=== PATIENT | male | born 1965 | race Caucasian/White ===

== ENCOUNTER 2017-03-17 06:50 | Day surgery (SDC) | payer BC ==
[2017-03-16 08:28] VITALS: BMI 23.3
[~2017-03-17 06:50] MED LIST: LACTATED RINGERS 1,000 ML IV SCH
[2017-03-17 07:10] VITALS: RESP 16; TEMP 97.4
[2017-03-17] MEDS ORDERED: PROPOFOL 10 MG/ML 20 ML VIAL IV ONE (07:44)
[2017-03-17] MEDS ORDERED: LIDOCAINE 1% INJ 10MG/ML (20 ML MDV) ONE (07:44)
--- NOTE | 2017-03-17 07:57 | P.GSHP ---
History of Present Illness H&P Date: 03/17/17 Chief Complaint: Screening colonoscopy This a 52-year-old male who presents today for screening colonoscopy. Patient denies any significant junk placed. His father has history of colon cancer. Past Medical History Past Medical History: No Reported History History of Any Multi-Drug Resistant Organisms: None Reported Past Surgical History: Orthopedic Surgery Additional Past Surgical History / Comment(s): left eye cornea transplant, foot sx Past Anesthesia/Blood Transfusion Reactions: No Reported Reaction Smoking Status: Never smoker - Past Family History Mother Family Medical History: No Reported History Medications and Allergies Home Medications Medication Instructions Recorded Confirmed Type No Known Home Medications [No 03/16/17 03/17/17 History Known Home Medications] Allergies Allergy/AdvReac Type Severity Reaction Status Date / Time No Known Allergies Allergy Verified 03/16/17 08:22 Surgical - Exam Vital Signs Temp Pulse Resp BP Pulse Ox 97.4 F L 61 16 121/77 99 03/17/17 07:08 03/17/17 07:08 03/17/17 07:08 03/17/17 07:08 03/17/17 07:08 - General well developed, no distress - Eyes PERRL - ENT normal pinna - Neck no masses - Respiratory normal expansion - Cardiovascular Rhythm: regular - Abdomen Abdomen: soft, non tender Assessment and Plan Plan: Family history of colon cancer. We'll perform screening colonoscopy.
--- NOTE | 2017-03-17 08:06 | P.OP ---
Date of Procedure: 03/17/17 Preoperative Diagnosis: Screening colonoscopy Postoperative Diagnosis: Normal colon Procedure(s) Performed: Colonoscopy Implants: Anesthesia: MAC Surgeon: Wicho Cordero Pathology: none sent Condition: stable Disposition: PACU Indications for Procedure: Operative Findings: Description of Procedure: PROCEDURE: The patient was placed on the endoscopy table in the lateral position. Digital rectal examination was performed which revealed no abnormalities. The prostate was symmetrical without nodules. Flexible colonoscope was then placed in the patient's anus and passed throughout the entire colon. The ileocecal valve was visualized. The cecum, ascending, transverse, descending and sigmoid colon were normal. The rectum was normal as well. There were no masses, polyps or diverticula noted in the entire colon. SUMMARY OF FINDINGS: Normal colonoscopy.
[2017-03-17] MEDS ORDERED: LACTATED RINGERS 1,000 ML IV ONE (08:11)
[2017-03-17 08:22] VITALS: BP 103/75; PULSE 64
== END 2017-03-17 08:46 | disposition home or self-care (01) ==
LOC: ORWHC2ENDO 06:50
PROVIDERS: ATTEND Surgery
DX: Z12.11 Encounter for screening for malignant neoplasm of colon (principal); Z80.0 Family history of malignant neoplasm of digestive organs
CPT/HCPCS: J2001; J2704; G0105

== ENCOUNTER 2017-04-05 11:38 | Day surgery (SDC) | payer BC ==
[2017-03-30 13:48] VITALS: BMI 21.4
[~2017-04-05 11:38] MED LIST changes: +DEXAMETHASONE SOD PHOSPHATE 10 MG/ML 1 ML VIAL IV ONE; +FAMOTIDINE 20 MG/2 ML VIAL IV PRN; +HEPARIN SODIUM,PORCINE 5,000 UNIT/ML 1 ML VIAL SQ ONE; +HYDROmorphone 1 MG/ML 1 ML SYRINGE IVP PRN; -LACTATED RINGERS 1,000 ML IV SCH; +SCOPOLAMINE 1.5MG/72HR PATCH TRANSDERM ONE; +ceFAZolin 2 GM in SODIUM CHLORIDE 0.9% 100 ML IVPB ONE
[2017-04-05] MEDS: LACTATED RINGERS 1,000 ML IV SCH (11:48)
[2017-04-05] MEDS ORDERED: LIDOCAINE 1% 20 ML VIAL (10MG/ML) FOR IV START INTRADERMA ONE (11:55)
--- NOTE | 2017-04-05 13:23 | P.GSHP ---
History of Present Illness H&P Date: 04/05/17 Chief Complaint: Right inguinal hernia Assessment 52-year-old male referred from Dr. Hieu Newberry. Patient presents today for laparoscopic robotic-assisted of right inguinal hernia. Past Medical History Past Medical History: No Reported History Additional Past Medical History / Comment(s): RINGING IN EARS History of Any Multi-Drug Resistant Organisms: None Reported Past Surgical History: Orthopedic Surgery Additional Past Surgical History / Comment(s): left eye cornea transplant, foot sx, colonoscopy Past Anesthesia/Blood Transfusion Reactions: No Reported Reaction Past Psychological History: No Psychological Hx Reported Smoking Status: Never smoker Past Alcohol Use History: None Reported Past Drug Use History: None Reported - Past Family History Mother Family Medical History: No Reported History Medications and Allergies Home Medications Medication Instructions Recorded Confirmed Type Multivitamins, Thera [Multivitamin 1 tab PO DAILY 03/30/17 04/05/17 History (formulary)] Allergies Allergy/AdvReac Type Severity Reaction Status Date / Time No Known Allergies Allergy Verified 04/05/17 11:51 Surgical - Exam Vital Signs Temp Pulse Resp BP Pulse Ox 98.1 F 60 16 119/74 99 04/05/17 11:57 04/05/17 11:57 04/05/17 11:57 04/05/17 11:57 04/05/17 11:57 - General well developed, no distress - Eyes PERRL - ENT normal pinna - Neck no masses - Respiratory normal expansion - Cardiovascular Rhythm: regular - Abdomen Abdomen: soft, non tender Hernia: inguinal (Right internal hernia) Assessment and Plan Plan: Right inguinal hernia. We'll perform laparoscopic robotic-assisted repair.
[2017-04-05] MEDS ORDERED: ROCURONIUM BROMIDE 10 MG/ML 10 ML VIAL IV ONE (13:55)
[2017-04-05] MEDS ORDERED: SUCCINYLCHOLINE CHLORIDE 100 MG/5 ML SYR IV ONE (13:55)
[2017-04-05] MEDS ORDERED: GLYCOPYRROLATE 0.2 MG/ML 2 ML VIAL ONE (13:55)
[2017-04-05] MEDS ORDERED: PROPOFOL 10 MG/ML 20 ML VIAL IV ONE (13:55)
[2017-04-05] MEDS ORDERED: KETOROLAC 30 MG/ML 1 ML VIAL ONE (13:55)
[2017-04-05] MEDS ORDERED: MIDAZOLAM 2 MG/2 ML VIAL ONE (13:55)
[2017-04-05] MEDS ORDERED: LIDOCAINE 1% INJ 10MG/ML (20 ML MDV) ONE (13:55)
[2017-04-05] MEDS ORDERED: DEXAMETHASONE SOD PHOS (MDV) 100 MG/10 ML VIAL ONE (13:55)
[2017-04-05] MEDS ORDERED: fentaNYL (PF) 50 MCG/ML 2 ML AMP ONE (13:55)
[2017-04-05] MEDS ORDERED: NEOSTIGMINE 1 MG/ML 10 ML VIAL ONE (13:55)
[2017-04-05] MEDS ORDERED: LIDOCAINE 2%-EPI 1:100,000 20 ML VIAL SQ ONE (14:34)
[2017-04-05] MEDS ORDERED: BUPIVACAINE (PF) 0.25% 30 ML VIAL SQ ONE (14:34)
--- NOTE | 2017-04-05 15:19 | P.OP ---
Date of Procedure: 04/05/17 Preoperative Diagnosis: Right inguinal hernia Postoperative Diagnosis: Bilateral inguinal hernia Procedure(s) Performed: Laparoscopic robotic assistance repair of bilateral inguinal hernia Implants: Anesthesia: GRZEGORZA Surgeon: Wicho Cordero Estimated Blood Loss (ml): 5 Pathology: none sent Condition: stable Disposition: PACU Indications for Procedure: Operative Findings: Description of Procedure: The patient's placed on the operating table in the supine position. The patient received general anesthesia. The patient's abdomen was prepped and draped in usual sterile fashion. The skin was anesthetized 1% local Xylocaine at the incision sites. Using an 11 blade a skin incision was made at the umbilicus. The fascia was grasped with a Ran and then the peritoneal cavity was entered with the Veress needle. Position of the Veress needle was confirmed with a positive drop test. After adequate insufflation a 5 mm trocar was placed into the peritoneal cavity. The Laparoscope was placed the peritoneal cavity. And a robotic 8 mm trocar was placed in the right lateral position and then another 8 mm robotic trochars placed in the left lateral position. The original 5 mm trocar was exchanged for a 12 mm trocar. The patient was placed in reverse Trendelenburg and then the patient was docked to the robot. Next the peritoneum over top of the hernia was incised and then using blunt and sharp dissection and electrocautery the hernia sac was dissected free from the floor of the inguinal canal. The hernia sac was completely reduced into the peritoneal cavity. And then using the Pro actimize architect mesh the hernia was repaired. The peritoneum was then sutured with 20V lock suture. Next the left and one hernia was repaired in identical fashion. The patient was then undocked the robot. The needles were withdrawn from the peritoneal cavity. The umbilical trocar site was closed with 0 Ethibond suture. The skin was closed interrupted 3-0 Monocryl suture. Dermabond dressing was applied. Patient was sent to recovery in stable condition.
[2017-04-05 15:21] VITALS: TEMP 98
[2017-04-05 15:27] VITALS: RESP 16
[2017-04-05] MEDS ORDERED: HYDROcodone/APAP 7.5-325MG 1 EACH TAB PO ONE (16:31)
[2017-04-05 17:36] VITALS: BP 118/72; PULSE 68
== END 2017-04-05 17:55 | disposition home or self-care (01) ==
LOC: OR 11:38
PROVIDERS: ATTEND Surgery
DX: K40.20 Bilateral inguinal hernia, without obstruction or gangrene, not specified as recurrent (principal); Z79.899 Other long term (current) drug therapy
CPT/HCPCS: 49650; C1781; J2250; J1644; J1100 ×2; J2710; J0690; J2001; J3010; J1885; J0330; J2704

== ENCOUNTER 2020-11-14 16:07 | Emergency (ER) | payer BC ==
[2020-11-14 16:17] VITALS: BP 133/83; PULSE 89; RESP 18; TEMP 99.4
--- NOTE | 2020-11-14 17:22 | XR ---
EXAMINATION TYPE: XR chest 1V portable DATE OF EXAM: 11/14/2020 COMPARISON: NONE HISTORY: Cough and short of breath TECHNIQUE: Single view FINDINGS: Heart is normal. There is a possible poorly marginated 2 cm infiltrate in the left lower adam ng field. There are no hilar masses. Costophrenic angles are clear. IMPRESSION: Possible minimal infiltrate in the left lower lobe. Normal heart.
[2020-11-14] MEDS ORDERED: dexAMETHasone 2 MG TAB PO STA (18:01)
--- NOTE | 2020-11-14 18:05 | ED ---
SOB HPI - General Chief Complaint: Shortness of Breath Stated Complaint: JAZMINE Time Seen by Provider: 11/14/20 16:26 Source: patient Mode of arrival: ambulatory Limitations: no limitations - History of Present Illness Initial Comments: Parish is a 55-year-old male presents the ER today with concern for COVID 19. Patient reports that he was exposed and over the past couple of days has had a dry nonproductive cough no shortness of breath or chest pain. Mild body aches. Reports she's been eating and drinking well. No known fevers. Significant past medical history her comorbidities. - Related Data Home Medications Medication Instructions Recorded Confirmed Multivitamins, Thera [Multivitamin 1 tab PO DAILY 03/30/17 04/05/17 (formulary)] Previous Rx's Medication Instructions Recorded Docusate [Colace] 100 mg PO BID #20 capsule 04/05/17 HYDROcodone/APAP 7.5-325MG [[place] 1 each PO Q4H PRN #60 tab 04/05/17 7.5] Allergies Allergy/AdvReac Type Severity Reaction Status Date / Time No Known Allergies Allergy Verified 11/14/20 16:17 Review of Systems ROS Statement: Those systems with pertinent positive or pertinent negative responses have been documented in the HPI. ROS Other: All systems not noted in ROS Statement are negative. Past Medical History Past Medical History: No Reported History Additional Past Medical History / Comment(s): RINGING IN EARS History of Any Multi-Drug Resistant Organisms: None Reported Past Surgical History: Orthopedic Surgery Additional Past Surgical History / Comment(s): left eye cornea transplant, foot sx, colonoscopy Past Anesthesia/Blood Transfusion Reactions: No Reported Reaction Past Psychological History: No Psychological Hx Reported Smoking Status: Never smoker Past Alcohol Use History: None Reported Past Drug Use History: None Reported - Past Family History Mother Family Medical History: No Reported History General Exam - General Exam Comments Initial Comments: Physical Exam GENERAL: Patient is well-developed and well-nourished. Patient is nontoxic and well- hydrated and is in no distress. HENT: Normocephalic, Atraumatic. EYES: PERRL, EOMI PULMONARY: Unlabored respirations. No audible rales rhonchi or wheezing was noted. CARDIOVASCULAR: There is a regular rate and rhythm without any murmurs gallops or rubs. ABDOMEN: Soft and nontender with normal bowel sounds. SKIN: Skin is clear with no lesions or rashes and otherwise unremarkable. : Deferred NEUROLOGIC: Patient is alert and oriented x3. Moving all extremities spontaneously MUSCULOSKELETAL: Normal extremities with adequate strength and full range of motion. No lower extremity swelling or edema. No calf tenderness. PSYCHIATRIC: Normal psychiatric evaluation. Limitations: no limitations Course Vital Signs 11/14/20 16:14 Temperature 99.4 F Pulse Rate 89 Respiratory 18 Rate Blood Pressure 133/83 O2 Sat by Pulse 98 Oximetry Medical Decision Making - Medical Decision Making Patient was seen and evaluated history was obtained from patient Relatively healthy 55-year-old male with no cardiac or pulmonary history presenting with cough for a few days after known exposure to COVID 19 Patient was tested and is COVID 19 positive patient be given a dose of Decadron discharged home with supportive care measures including vitamin C vitamin D & Zinc. - Lab Data Lab Results 11/14/20 Range/Units 16:58 Coronavirus (PCR) Detected A (Not Detectd) Disposition Clinical Impression: COVID-19 Disposition: HOME SELF-CARE Condition: Stable Instructions (If sedation given, give patient instructions): Coronavirus Disease 2019 (COVID-19) Is patient prescribed a controlled substance at d/c from ED?: No Referrals: Hieu Bonds MD [Primary Care Provider] - 1-2 days
== END 2020-11-14 18:18 | disposition home or self-care (01) ==
LOC: EC 16:07
DX: U07.1 COVID-19 (principal)
CPT/HCPCS: 87635; 71045; 99285; J8540

== ENCOUNTER 2020-11-20 16:38 | Emergency (ER) | payer BC ==
[2020-11-20 16:43] VITALS: TEMP 98.8
[2020-11-20] MEDS ORDERED: DIAZEPAM 5 MG/ML 2 ML INJ IVP STA (17:16)
[2020-11-20] MEDS ORDERED: NITROGLYCERIN SL TABS 0.4 MG TAB SUBLINGUAL STA (17:16)
[2020-11-20] MEDS ORDERED: GLUCAGON 1 MG/ML VIAL IVP STA (17:17)
--- NOTE | 2020-11-20 17:51 | ED ---
General Adult HPI - General Source: patient, RN notes reviewed Mode of arrival: ambulatory Limitations: no limitations <Ed Ruth - Last Filed: 11/20/20 21:37> <Teodora Bauman - Last Filed: 11/22/20 12:10> - General Chief complaint: ENT Stated complaint: Food stuck in throat Time Seen by Provider: 11/20/20 16:44 - History of Present Illness Initial comments: 55-year-old male presents to the emergency room for a chief complaint of food stuck in throat. Patient states this started at midnight when he was eating potatoes and vegetables. Patient does not recall eating meat or getting meat stuck in his throat. States he is not able to drink anything. Patient states this has happened before but he is usually able to clear it on his own. Patient is a covid positive.Patient has no other complaints at this time including shortness of breath, chest pain, abdominal pain, nausea or vomiting, headache, o r visual changes. (Ed Ruth) - Related Data Home Medications Medication Instructions Recorded Confirmed Multivitamins, Thera [Multivitamin 1 tab PO DAILY 11/20/20 11/20/20 (formulary)] Allergies Allergy/AdvReac Type Severity Reaction Status Date / Time No Known Allergies Allergy Verified 11/20/20 18:39 Review of Systems ROS Other: All systems not noted in ROS Statement are negative. <Ed Ruth - Last Filed: 11/20/20 21:37> ROS Other: All systems not noted in ROS Statement are negative. <Teodora Bauman - Last Filed: 11/22/20 12:10> ROS Statement: Those systems with pertinent positive or pertinent negative responses have been documented in the HPI. Past Medical History Past Medical History: No Reported History Additional Past Medical History / Comment(s): RINGING IN EARS History of Any Multi-Drug Resistant Organisms: None Reported Past Surgical History: Orthopedic Surgery Additional Past Surgical History / Comment(s): left eye cornea transplant, foot sx, colonoscopy Past Anesthesia/Blood Transfusion Reactions: No Reported Reaction Past Psychological History: No Psychological Hx Reported Smoking Status: Never smoker Past Alcohol Use History: None Reported Past Drug Use History: None Reported - Past Family History Mother Family Medical History: No Reported History <Ed Ruth - Last Filed: 11/20/20 21:37> General Exam Limitations: no limitations General appearance: alert, in no apparent distress Head exam: Present: atraumatic Eye exam: Present: normal appearance, PERRL, EOMI. Absent: scleral icterus, conjunctival injection, periorbital swelling ENT exam: Present: normal exam, mucous membranes moist Neck exam: Present: normal inspection, full ROM. Absent: tenderness Respiratory exam: Present: normal lung sounds bilaterally. Absent: respiratory distress, wheezes, rales, rhonchi, stridor Cardiovascular Exam: Present: regular rate, normal rhythm, normal heart sounds. Absent: systolic murmur, diastolic murmur, rubs, gallop, clicks GI/Abdominal exam: Present: soft, normal bowel sounds. Absent: distended, tenderness, guarding, rebound, rigid <Ed Ruth P - Last Filed: 11/20/20 21:37> Course Vital Signs 11/20/20 11/20/20 11/20/20 16:40 17:29 17:38 Temperature 98.8 F Pulse Rate 67 88 105 H Respiratory 18 18 16 Rate Blood Pressure 129/86 136/85 121/81 O2 Sat by Pulse 97 99 98 Oximetry 11/20/20 11/20/20 11/20/20 19:13 21:00 21:38 Temperature Pulse Rate 88 78 87 Respiratory 16 18 18 Rate Blood Pressure 111/67 115/78 118/73 O2 Sat by Pulse 96 99 100 Oximetry 11/20/20 22:06 Temperature 98.8 F Pulse Rate 75 Respiratory 16 Rate Blood Pressure 125/80 O2 Sat by Pulse 100 Oximetry Medical Decision Making <Ed Ruth P - Last Filed: 11/20/20 21:37> <Teodora Bauman - Last Filed: 11/22/20 12:10> - Medical Decision Making Patient was given soda, sublingual nitro, IV Valium and glucagon, still unable to tolerate liquids. At this time GI was consulted. They will take patient to endoscopy suite for intubation given positive Covid status. I did discuss this case with administered discharge and admission orders do not need to be ordered, he will be discharged from the emergency room after the procedure. They did find a pea in patient's esophagus that was removed. He was directed to only drink clear liquids for 24 hours. He needs to follow up with Dr. Reeves in 2 weeks. (Ed Ruth) I was available for consultation in the emergency department. The history and physical exam were done by the midlevel provider. I was consulted for this patients care. I reviewed the case with the midlevel provider and based on their presentation of the patient, I agree with the assessment, medical decision making and plan of care as documented. I spoke with Dr. reeves who requested intubation of the patient in the OR. Patient returned to ED after procedure. He return to his baseline level of consciousness and neurologic function. Instructed not to drive x 24 hours. Chart was dictated using [employer] dictation software. Attempts were made to correct any dictation errors however some typographical errors may persist. Patient was seen during a national state of emergency due to the Covid-19 pandemic. (Teodora Bauman) Disposition Is patient prescribed a controlled substance at d/c from ED?: No Time of Disposition: 18:50 <Ed Ruth - Last Filed: 11/20/20 21:37> <Teodora Bauman - Last Filed: 11/22/20 12:10> Clinical Impression: Esophageal foreign body Disposition: HOME SELF-CARE Condition: Good Instructions (If sedation given, give patient instructions): Esophageal Foreign Body (ED) Additional Instructions: Drink only liquids for the next 24 hours. Please follow up with primary care and GI. You should see Dr Reeves again in 2 weeks. Call to schedule the appointment this coming week. Please return to the emergency room for any worsening symptoms. Referrals: Hieu Bonds MD [Primary Care Provider] - 1-2 days Angelika Reeves MD [STAFF PHYSICIAN] - 1-2 days
[2020-11-20] MEDS ORDERED: PROPOFOL 10 MG/ML 20 ML VIAL IV ONE (20:13)
[2020-11-20] MEDS ORDERED: SUCCINYLCHOLINE CHLORIDE 100 MG/5 ML SYR IV ONE (20:13)
[2020-11-20] MEDS ORDERED: LIDOCAINE 1% INJ 10MG/ML (20 ML MDV) ONE (20:13)
[2020-11-20] MEDS ORDERED: LACTATED RINGERS 1,000 ML IV ONE (20:22)
--- NOTE | 2020-11-20 20:37 | P.PCN ---
Date of Procedure: 11/20/20 Procedure(s) Performed: BRIEF HISTORY: Patient is a 55-year-old, pleasant, white male came to the emergency room with acute food impaction. He had a similar episode about 5 years ago. Denies any GERD symptoms. He scheduled for an upper endoscopy on an emergency basis.. PROCEDURE PERFORMED: Esophagoscopy with foreign body removal and biopsies. PREOPERATIVE DIAGNOSIS: Acute food impaction. IV sedation per anesthesia. PROCEDURE: After informed consent was obtained, the patient was brought into [facility] endoscopy unit. IV sedation was administered by Anesthesia under continuous monitoring. Initially the Olympus GIF-140 video endoscope was inserted into the mouth. Esophagus intubated without any difficulty. It was gradually advanced into the distal esophagus. There was long esophageal stricture extending from 33 cm distally to the GE junction. There was a small food particle, a small pea impacted in the esophageal stricture and this was removed using a Buckley net. Following this I tried to advance the scope through the stricture but was not possible. The entire length of esophagus had multiple superficial rings with a corrugated appearance and thickened esophageal folds suspicious for eosinophilic esophagitis and multiple biopsies were done from the mid and distal esophagus. The proximal cervical esophagus appeared normal. There were no erosions or ulcerations seen and the patient tolerated the procedure well. IMPRESSION: 1. Long esophageal stricture involving the distal esophagus with a small pea impacted status post removal. 2. Scope could not be advanced beyond the esophageal stricture. RECOMMENDATIONS: The findings of this examination were discussed with the patient. He'll be discharged home after recovery. He was advised to remain on clear liquid diet today. Follow up in office in 2 weeks and will plan on an elective EGD with dilation.
--- NOTE | 2020-11-20 21:20 | CONS ---
CONSULTATION DATE OF DICTATION: 11/20/2020 BRIEF HISTORY: The patient is a 55-year-old white male who came to the emergency room with acute food impaction. He was eating a potato and vegetables last night and could not swallow any further. He tried to induce vomiting, with no help. He had a similar episode about 5 years ago that resolved spontaneously after an hour. He came to the ER and we are consulted for upper endoscopy for foreign body removal. Patient states that he was tested COVID positive 6 days ago. He denies any shortness of breath. He denies any fever, chills or sore throat. PAST MEDICAL HISTORY: Unremarkable. PAST SURGICAL HISTORY: Left eye cornea transplant, foot surgery, colonoscopy. HOME MEDICATIONS: Multivitamin. ALLERGIES: NO KNOWN DRUG ALLERGIES. SOCIAL HISTORY: No smoking. No alcohol use. FAMILY HISTORY: Unremarkable. REVIEW OF SYSTEMS: CARDIOPULMONARY: No chest pain or shortness of breath. GENITOURINARY: No dysuria or hematuria. MUSCULOSKELETAL: Unremarkable. SKIN: Unremarkable. ENDOCRINE: Unremarkable. PSYCHIATRIC: Unremarkable. NEUROLOGY: Unremarkable. ENT/VISION: Unremarkable. CONSTITUTIONAL: No recent weight loss. No fever, chills, night sweats. PHYSICAL EXAMINATION: He appears comfortable. No apparent distress. Vital signs are stable. Blood pressure is 111/67, pulse rate 88, temperature 98. HEENT examination unremarkable. Conjunctivae pink. Sclerae anicteric. Oral cavity no lesions. NECK: No JVD or lymph node enlargement. CHEST: Clear to auscultation. HEART: Regular rate and rhythm. ABDOMEN: Soft. Bowel sounds are positive. EXTREMITIES: No pedal edema. NEUROLOGIC: Alert and oriented x3. No focal deficits. LABS: Not done. IMPRESSION: 1. Acute food impaction. The patient had a similar episode about 5 years ago but it spontaneously resolved. No history of gastroesophageal reflux symptoms. 2. COVID-19 infection, but no pulmonary symptoms. He tested positive 6 days ago. RECOMMENDATIONS: Will proceed with EGD with foreign body removal. Discussed with the patient risks, benefits and complications, and he is agreeable to it. Thank you for this consultation. MMODL / IJN: [id number] /
[2020-11-20 22:07] VITALS: BP 125/80; PULSE 75; RESP 16
== END 2020-11-20 22:09 | disposition home or self-care (01) ==
LOC: EC 16:38
DX: T18.128A Food in esophagus causing other injury, initial encounter (principal); U07.1 COVID-19
CPT/HCPCS: 88305; 43239; 43247; 99283; 96374; 96375; J1610; J3360; J2001; J0330; J2704

== ENCOUNTER 2021-01-01 11:37 | Day surgery (SDC) | payer BC ==
[2020-12-02 13:38] VITALS: BMI 20.7
[~2021-01-01 11:37] MED LIST changes: -DEXAMETHASONE SOD PHOSPHATE 10 MG/ML 1 ML VIAL IV ONE; -FAMOTIDINE 20 MG/2 ML VIAL IV PRN; -HEPARIN SODIUM,PORCINE 5,000 UNIT/ML 1 ML VIAL SQ ONE; -HYDROmorphone 1 MG/ML 1 ML SYRINGE IVP PRN; +LACTATED RINGERS 1,000 ML IV SCH; -SCOPOLAMINE 1.5MG/72HR PATCH TRANSDERM ONE; -ceFAZolin 2 GM in SODIUM CHLORIDE 0.9% 100 ML IVPB ONE
[2021-01-01 12:07] VITALS: TEMP 96.4
[2021-01-01] MEDS ORDERED: LIDOCAINE 1% INJ 10MG/ML (20 ML MDV) ONE (12:35)
[2021-01-01] MEDS ORDERED: PROPOFOL 10 MG/ML 20 ML VIAL IV ONE (12:35)
--- NOTE | 2021-01-01 12:50 | P.PCN ---
Date of Procedure: 01/01/21 Procedure(s) Performed: BRIEF HISTORY: Patient is a 55-year-old, pleasant, white male scheduled for an upper endoscopy with a possible dilation as a part of evaluation of progressive dysphagia to solids. He has recent episode of acute food impaction and underwent an emergency upper endoscopy a month ago that showed long distal esophageal stricture and the scope could not be advanced through the stricture.. PROCEDURE PERFORMED: Esophagogastroduodenoscopy with dilation and biopsy. PREOPERATIVE DIAGNOSIS: Progressive dysphagia to solids and history of esophageal stricture. IV sedation per anesthesia. PROCEDURE: After informed consent was obtained, the patient was brought into the endoscopy unit. IV sedation was administered by Anesthesia under continuous monitoring. Initially the Olympus GIF-140 video endoscope was inserted into the mouth. Esophagus intubated without any difficulty. It was gradually advanced into the distal esophagus. There was a long distal esophageal stricture extending from 30-40 cm from the incisors and the scope could not be advanced to the stricture. There are multiple mucosal rings noted in the distal esophagus. At this time I proceeded with balloon dilation using 8-10 mm mid TTS balloon in a sequential fashion for 60 seconds.Following the dilation I was able able to advance the scope into the stomach and duodenum and carefully examined. The bulb and the second part of the duodenum appeared normal. The scope at this time was withdrawn to the stomach, adequately insufflated with air, and upon careful examination, mucosa of the antrum, body, cardia and the fundus appeared normal. The scope was then withdrawn into the esophagus. The GE junction was located at 37 cm from the incisors. Small sliding-type well hernia noted. The mucosa in the distal esophagus had multiple superficial mucosal rings and the dilation there was a superficial mucosal tear identified. The folds in the proximal and midesophagus appeared any matters and hence multiple biopsies were done to evaluate for eosinophilic esophagitis. The patient tolerated the procedure we ll. IMPRESSION: 1. Long distal esophageal stricture extending from 30-37 cm from the incisors with multiple superficial mucosal rings suspicious for years of age esophagitis. Status post balloon dilation using 8-10 mm TTS balloon as described above. 2. Small Hiatal hernia. RECOMMENDATIONS: The findings of this examination were discussed with the patient as well as his family. He will remain on a clear liquid diet today. He will continue with Prilosec 20 mg daily. We will await biopsy results. He'll be seen in office in 6 weeks..
[2021-01-01 13:21] VITALS: BP 1110/72; PULSE 66; RESP 20
== END 2021-01-01 13:55 | disposition home or self-care (01) ==
LOC: ORWHC2ENDO 11:37
PROVIDERS: ATTEND Internal Medicine Gastroenterology
DX: K22.2 Esophageal obstruction (principal); K20.90 Esophagitis, unspecified without bleeding; K44.9 Diaphragmatic hernia without obstruction or gangrene; R13.10 Dysphagia, unspecified
CPT/HCPCS: 88305; 43239; 43249; J2001; J2704; C1726

== ENCOUNTER 2025-01-20 15:49 | Emergency (ER) | payer BC, OTHER ==
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
--- NOTE | 2025-01-20 16:29 | XR ---
EXAMINATION TYPE: XR hand complete LT DATE OF EXAM: 01/20/2025 CLINICAL INDICATION: Male, 59 years old with history of fall, pain, pain TECHNIQUE: Frontal, lateral and oblique images of left hand are obtained. COMPARISON: None. FINDINGS: There is an acute comminuted minimally displaced fracture of the midshaft of the third met acarpal. Joint spaces of the left hand are preserved. Overlying soft tissue is unremarkable IMPRESSION: As above. [facility], , 01/20/2025 4:26 PM
[2025-01-20 17:14] VITALS: BP 148/96; PULSE 82; RESP 20; TEMP 98.1
== END 2025-01-20 16:30 | disposition home or self-care (01) ==
LOC: EC 15:49
DX: S62.303A Unspecified fracture of third metacarpal bone, left hand, initial encounter for closed fracture (principal); W01.0XXA Fall on same level from slipping, tripping and stumbling without subsequent striking against object, initial encounter
CPT/HCPCS: 29125; 99283